=== PATIENT | female | born 1985 | race Two or more races ===

== ENCOUNTER 2019-10-08 07:18 | Inpatient (IN) | payer OTHER ==
[~2019-10-08] VITALS: Ht 154.9 cm; Wt 77.1 kg
[2019-10-08] MEDS ORDERED: FENOFI PO (13:35)
== END 2019-10-12 19:06 | disposition home or self-care (01) | DRG 743 ==
LOC: SURH 10-10 07:00 → O/R 10-10 07:30 → SURH 10-10 07:30 → SURG-SUITE 10-10 08:10 → O/R 10-10 08:10 → OB/GYN 10-10 15:43 → SURG-SUITE 10-10 19:27
PROVIDERS: Urology; ADMIT Obstetrics & Gynecology; ATTEND Obstetrics & Gynecology
PROC: 0UT90ZZ Resection of Uterus, Open Approach (ICD-10-PCS; principal; 2019-10-10 07:00)
PROC: 0UT70ZZ Resection of Bilateral Fallopian Tubes, Open Approach (ICD-10-PCS; 2019-10-10 07:00)
DX: D25.1 Intramural leiomyoma of uterus (principal); D25.2 Subserosal leiomyoma of uterus; N72 Inflammatory disease of cervix uteri